=== PATIENT | female | born 1960 | race American Indian/Alaskan Native ===

== ENCOUNTER 2022-01-20 15:53 | Emergency (ER) | payer MEDICAID, MEDICARE, OTHER ==
--- NOTE | 2022-01-20 16:28 | Emergency Department Report ---
ED Seizure HPI - General Chief Complaint: Seizure Stated Complaint: POSTICTAL Time Seen by Provider: 01/20/22 16:15 Source: patient, EMS Mode of arrival: Stretcher Limitations: No Limitations - History of Present Illness Initial Comments: 62-year-old with a past medical history of hypertension, hypothyroidism and tardive dyskinesia presents to the hospital with seizure activity. Patient was slightly postictal upon arrival therefore history obtained from EMS. They state that they were called by patient's son who reported that they were on the couch watching TV when all of a sudden her body stiffened up and she started shaking. Patient was altered and lethargic upon EMS arrival and unable to follow commands. At time of my evaluation she is awake, responsive to voice and oriented to self but not place. She does not recall what happened. She denies previous history of seizures. She does not complain of any preceding symptoms and reports feeling fine prior to episode. She currently denies symptoms of headache, chest pain, shortness of breath, infectious symptoms, or abdominal pain. She cannot currently recall her current medications Medications provided by patient's son after arrival include Chlorthalidone valbenazine Amantadine Levothyroxine K chlor Vitamin D - Related Data Previous Rx's Medication Instructions Recorded Last Taken Type levETIRAcetam [Keppra TAB] 1,000 mg PO BID #60 tab 01/20/22 Unknown Rx Allergies Allergy/AdvReac Type Severity Reaction Status Date / Time No Known Allergies Allergy Verified 01/20/22 15:56 ED Review of Systems ROS: Stated complaint: POSTICTAL Other details as noted in HPI Comment: All other systems reviewed and negative ED Past Medical Hx - Past Medical History Hx Hypertension: Yes Additional medical history: Hypothyroid - Medications Home Medications: Home Medications Medication Instructions Recorded Confirmed Last Taken Type levETIRAcetam [Keppra TAB] 1,000 mg PO BID #60 tab 01/20/22 Unknown Rx ED Physical Exam - General Limitations: No Limitations - Other Other exam information: General: No acute distress Head: Atraumatic Eyes: normal appearance ENT: Right lateral mild tongue abrasion without active bleed Neck: Normal appearance, no midline tenderness Chest: Clear to auscultation bilaterally CV: Regular rate and rhythm Abdomen: Soft, normal bowel sounds, nontender, nondistended, no rebound or guarding Back: Normal inspection Extremity: Normal inspection, full range of motion Neuro: Drowsy but easily aroused O x 2, no facial asymmetry, speech clear, equal handgrip, no drift to upper or lower extremities, sensation equal bilaterally, extraocular movements intact Psych: Appropriate behavior Skin: No rash ED Course Vital Signs 01/20/22 01/20/22 15:54 16:17 Temperature 98.6 F Pulse Rate 82 Respiratory 18 Rate Blood Pressure 112/47 Blood Pressure 138/78 [Left] O2 Sat by Pulse 96 99 Oximetry - Reevaluation(s) Reevaluation #1: 01/20/22 20:16 Patient currently alert and at baseline which has been confirmed by son sitting at the bedside. Medications divided by son. Awaiting callback from neurology to discuss case - Consultations Consultation #1: 01/20/22 20:19 Case discussed with neurologist Dr. Hogan who recommends initiating antiepileptic medication. Zac ordered. Will evaluate patient ED Medical Decision Making - Lab Data Result diagrams: 01/20/22 16:52 01/20/22 16:52 Lab Results 01/20/22 01/20/22 01/20/22 Range/Units 16:52 16:52 Unknown WBC 8.7 (4.5-11.0) K/mm3 RBC 4.22 (3.65-5.03) M/mm3 Hgb 13.5 (10.1-14.3) gm/dl Hct 41.1 (30.3-42.9) % MCV 97 (79-97) fl MCH 32 (28-32) pg MCHC 33 (30-34) % RDW 14.4 (13.2-15.2) % Plt Count 240 (140-440) K/mm3 Lymph % (Auto) 7.8 L (13.4-35.0) % Ward % (Auto) 3.4 (0.0-7.3) % Eos % (Auto) 0.4 (0.0-4.3) % Baso % (Auto) 1.0 (0.0-1.8) % Lymph # (Auto) 0.7 L (1.2-5.4) K/mm3 Ward # (Auto) 0.3 (0.0-0.8) K/mm3 Eos # (Auto) 0.0 (0.0-0.4) K/mm3 Baso # (Auto) 0.1 (0.0-0.1) K/mm3 Seg Neutrophils % 87.4 H (40.0-70.0) % Seg Neutrophils # 7.6 (1.8-7.7) K/mm3 Sodium 140 (137-145) mmol/L Potassium 3.3 L (3.6-5.0) mmol/L Chloride 99.5 (98-107) mmol/L Carbon Dioxide 27 (22-30) mmol/L Anion Gap 17 mmol/L BUN 17 (7-17) mg/dL Creatinine 1.1 (0.6-1.2) mg/dL Estimated GFR > 60 ml/min BUN/Creatinine Ratio 15 % Glucose 125 H (65-100) mg/dL Calcium 8.9 (8.4-10.2) mg/dL Magnesium 1.30 L (1.7-2.3) mg/dL Total Bilirubin 0.40 (0.1-1.2) mg/dL AST 17 (5-40) units/L ALT 10 (7-56) units/L Alkaline Phosphatase 88 (35-129) units/L Total Protein 7.3 (6.3-8.2) g/dL Albumin 3.8 L (3.9-5) g/dL Albumin/Globulin Ratio 1.1 % Urine Opiates Screen Presumptive negative Urine Methadone Screen Presumptive negative Ur Barbiturates Screen Presumptive negative Ur Phencyclidine Scrn Presumptive negative Ur Amphetamines Screen Presumptive negative U Benzodiazepines Scrn Presumptive negative Urine Cocaine Screen Presumptive negative U Marijuana (THC) Screen Presumptive negative Drugs of Abuse Note Disclamer - EKG Data -: EKG Interpreted by [place] EKG shows normal: sinus rhythm, intervals (AZ 232), ST-T waves (No STEMI) Rate: normal - Radiology Data Radiology results: report reviewed CT head/brain wo con INDICATION / CLINICAL INFORMATION: 62 years Female; new onset seizure. TECHNIQUE: Routine CT head without contrast. All CT scans at this location are performed using CT dose reduction for ALARA by means of automated exposure control. COMPARISON: None. FINDINGS: BRAIN / INTRACRANIAL CONTENTS: No acute hemorrhage, mass effect, midline shift, hydrocephalus, or acute, large territorial infarct. No signs of significant atrophy or chronic infarct. There are mild areas of decreased attenuation in the white matter of the cerebral hemispheres. These are nonspecific findings and may be related to microangiopathy (hypertension, diabetes, athero sclerosis), given the patient's age. Hyperostosis frontalis interna noted. This finding should be of no clinical significance. CRANIOCERVICAL JUNCTION: No significant abnormality. ORBITS: No significant abnormality of visualized orbits. SINUSES / MASTOIDS: Visualized paranasal sinuses and mastoid air cells are essentially clear. ADDITIONAL FINDINGS: None. IMPRESSION: 1. No focal mass, hemorrhage, hydrocephalus, or acute, large territorial infarct. - Medical Decision Making 62-year-old female new onset seizure. ED work-up unremarkable with exception of mild hypokalemia and hypomagnesemia. Patient received IV and p.o. supplementation of electrolytes. Neurologist was able to elicit history that patient recently started amantadine several weeks ago which could increase risk of seizures. She was advised to discontinue the medication and Keppra is still recommended as an outpatient. Patient received IV Keppra in the ED which should be continued with outpatient follow-up recommended Critical Care Time: No Critical care attestation.: If time is entered above; I have spent that time in minutes in the direct care of this critically ill patient, excluding procedure time. ED Disposition Clinical Impression: New onset seizure Disposition: 01 HOME / SELF CARE / HOMELESS Is pt being admited?: No Does the pt Need Aspirin: No Condition: Stable Instructions: Seizure, Adult, [id number] Additional Instructions: Take the medication as prescribed. As discussed with the neurologist please stop the Amantadine since this may cause seizures. Follow-up with your neurologist for further treatment return if symptoms worsen as indicated by your discharge instructions. Prescriptions: levETIRAcetam [Keppra TAB] 1,000 mg PO BID #60 tab Referrals: Your, neurologist [Other] - 3-5 Days Time of Disposition: 20:59
[2022-01-20 16:29] VITALS: BP 112/47
[2022-01-20 17:10] LABS: Basophils # (Auto) 0.1 K/mm3 (0.0-0.1); Eosinophils % (Auto) 0.4 % (0.0-4.3); Hematocrit 41.1 % (30.3-42.9); Hemoglobin 13.5 gm/dl (10.1-14.3); Lymphocytes # (Auto) 0.7 K/mm3 (1.2-5.4); Lymphocytes % (Auto) 7.8 % (13.4-35.0); Mean Corpuscular HGB Conc 33 % (30-34); Mean Corpuscular Volume 97 fl (79-97); Monocytes # (Auto) 0.3 K/mm3 (0.0-0.8); Monocytes % (Auto) 3.4 % (0.0-7.3); Platelet Count 240 K/mm3 (140-440); Red Blood Count 4.22 M/mm3 (3.65-5.03); Red Cell Distribution Width 14.4 % (13.2-15.2)
[2022-01-20 17:32] LABS: Alanine Aminotransferase 10 units/L (7-56); Albumin 3.8 g/dL (3.9-5); BUN/Creatinine Ratio 15; Blood Urea Nitrogen 17 mg/dL (7-17); Calcium 8.9 mg/dL (8.4-10.2); Hemolysis Index 8
[2022-01-20 17:40] LABS: Amphetamine Screen,Urine PRESUMPTIVE NEGATIVE; Benzodiazepines Screen,Urine PRESUMPTIVE NEGATIVE; Cannabinoid Screen,Urine PRESUMPTIVE NEGATIVE; Cocaine Screen,Urine PRESUMPTIVE NEGATIVE; Methadone Screen,Urine PRESUMPTIVE NEGATIVE; Opiate Screen,Urine PRESUMPTIVE NEGATIVE
--- NOTE | 2022-01-20 17:41 | Cat Scan Report ---
CT head/brain wo con INDICATION / CLINICAL INFORMATION: 62 years Female; new onset seizure. TECHNIQUE: Routine CT head without contrast. All CT scans at this location are performed using CT dos e reduction for ALARA by means of automated exposure control. COMPARISON: None. FINDINGS: BRAIN / INTRACRANIAL CONTENTS: No acute hemorrhage, mass effect, midline shift, hydrocephalus, or acu te, large territorial infarct. No signs of significant atrophy or chronic infarct. There are mild areas of decreased attenuation in the white matter of the cerebral hemispheres. These are nonspecific findings and may be related to microangiopathy (hypertension, diabetes, atheroscleros is), given the patient's age. Hyperostosis frontalis interna noted. This finding should be of no clinical significance. CRANIOCERVICAL JUNCTION: No significant abnormality. ORBITS: No significant abnormality of visualized orbits. SINUSES / MASTOIDS: Visualized paranasal sinuses and mastoid air cells are essentially clear. ADDITIONAL FINDINGS: None. IMPRESSION: 1. No focal mass, hemorrhage, hydrocephalus, or acute, large territorial infarct. Signer Name: Doug Alcocer MD, III Signed: 01/20/2022 5:37 PM Workstation Name: [id number]
[2022-01-20] MEDS ORDERED: MAGNESIUM SULFATE 2 GM/50 ML BAG IV ONE (18:05)
[2022-01-20] MEDS ORDERED: POTASSIUM CHLORIDE ER 20 MEQ TAB PO ONE (18:05)
[2022-01-20] MEDS ORDERED: levETIRAcetam 1000 MG/NS 0.75% 1,000 MG/100 ML BAG IV ONE (20:19)
--- NOTE | 2022-01-20 20:47 | Emergency Department Report ---
Blank Doc - Documentation Documentation: [facility] Consult Note # Demographics Consult Type: General Neurology Patient Location: Emergency Room First Name: Christina Last Name: Kacie Date of : 1960 Age: 62 Gender: Female Facility: [facility] Time of Initial Page (Eastern Time): 01/20/2022, 20:14 Time of Return Call (Eastern Time): 01/20/2022, 20:14 # HPI History: 62yo F presents with new onset seizure. she had an episode of stiffening and shaking. bit her tongue. CT was unrevealing. mild metabolic changes. she reprots feeing well. her TD is better controlled post ictal. she recently started amantadine about 2 weeks ago which is a new med for her # Exam Mental Status: awake alert and oriented x 3 follows commands Language: normal speech Cranial Nerves: normal Motor: no drift Sensory: normal sensation Cerebellar: normal cerebellar exam # PMH-FH-[id number] Past Medical History: hypertension hypothyroid tardive dyskinesia Medications: antihypertensive # Assessment Impression: Seizure possibly provoked from adding amantadine # Plan Medication: levetiracetam (Keppra) 1000 mg twice daily Other: I have discussed my recommendations with the referring provider Additional Recommendations: If back to normal, ok for outpatient MRI brain wwo contrast and EEG stop amantadine as seizure is a listed SE # Logistics Telemedicine: Interactive 2 way audio and visual telecommunication technology was utilized during this visit
--- NOTE | 2022-01-22 10:03 | Electrocardiograph Report ---
[facility] Test Date: 2022-01-20 Test Time: 16:44:07 Pat Name: EVON DOWNS Department: Room: Gender: F Braider Operator: CLARISSA : 1960 Requested By: PHILL LUBIN Order Number: [id number] Reading MD: Moises Guevara Measurements Intervals [place] Rate: 65 P: 38 NM: 232 QRS: 9 QRSD: 106 T: 10 QT: 448 QTc: 465 Interpretive Statements Sinus rhythm Prolonged NM interval Probable left atrial enlargement Low voltage, precordial lead NSTW'S No previous ECG available for comparison Electronically Signed On 01-22-2022 10:03:49 EDT by Moises Guevara
== END 2022-01-20 22:03 | disposition home or self-care (01) ==
LOC: ED 15:53
DX: R56.9 Unspecified convulsions (principal); I10 Essential (primary) hypertension
CPT/HCPCS: 36415; 70450; 80053; 80307; 83735; 85025; 93005; 96365; 96375; 99284; J1953; J3475